=== PATIENT | male | born 1985 | race African-American/Black ===

== ENCOUNTER → 2021-07-24 16:34 | Outpatient (CLI) | payer MEDICAID, SELFPAY ==
[2021-07-24 16:52] LABS: Basophils # 0.1 K/mm3 (0-0.2); Basophils % 0.7 % (0.1-2.0); Eosinophils # 0.1 K/mm3 (0.0-0.4); Hematocrit 48.4 % (42.0-52.0); Lymphocytes # 2.4 K/mm3 (0.7-4.5); Lymphocytes % 26.3 % (10-50); Mean Corpuscular Hemoglobin 28.7 pg (27.0-31.2); Mean Corpuscular Volume 92.7 fl (80-94); Monocytes # 0.5 K/mm3 (0.1-1.0); Neutrophils # 6.1 K/mm3 (1.8-7.8); Platelet Count 240 K/mm3 (142-424); Red Blood Count 5.22 M/mm3 (4.60-6.20); Red Cell Distribution Width 13.3 % (11.5-17.5); White Blood Count 9.1 K/mm3 (4.8-10.8)
[2021-07-24 16:56] LABS: Alanine Aminotransferase 49 U/L (12-78); Albumin Level 4.3 g/dl (3.5-5.0); Albumin/Globulin Ratio 1.2 (1.1-1.8); Alkaline Phosphatase 79 U/L (38-126); Anion Gap 17.9 mEq/L (5-15); Aspartate Amino Transferase 38 U/L (17-59); Bilirubin,Total 0.3 mg/dl (0.2-1.3); Blood Urea Nitrogen 14 mg/dl (9-20); Calcium 9.7 mg/dl (8.4-10.2); Carbon Dioxide 26 mmol/L (22.0-30.0); Chloride 105 mmol/L (98-107); Chol/HDL Ratio 6.8 (1-3.5); Cholesterol 217 mg/dl (140-200); Estimated Glomerular Filt Rate 129 ml/min (>60); GFR (African American) 156 ML/MIN (>60); Globulin 3.5 g/dL (1.3-3.2); Glucose 106 mg/dl (74-100); HDL Cholesterol 32 mg/dl (40-60); Potassium 4.9 mmoL/L (3.5-5.1); Sodium 144 mmol/L (136-145); Total Protein,Serum 7.8 g/dl (6.3-8.2); Triglycerides 258 mg/dl (30-150); VLDL Cholesterol 52 mg/dL (0-40)
[2021-07-24 17:07] LABS: Direct LDL Cholesterol 145.69 mg/dL (100-129)
[2021-07-24 17:13] LABS: Free T4 (Free Thyroxine) 0.91 ng/dl (0.78-2.19)
[2021-07-24 17:14] LABS: 25-OH Vitamin D, Total 22.9 ng/mL (30-100)
[2021-07-24 17:27] LABS: Thyroid Stimulating Hormone 0.74 uIU/mL (0.465-4.68)
== END ==
PROVIDERS: Visit Provider Physician Assistant
DX: Z00.00 Encounter for general adult medical examination without abnormal findings (principal); E55.9 Vitamin D deficiency, unspecified
CPT/HCPCS: 80053; 80061; 82306; 84439; 84443; 85025

== ENCOUNTER → 2022-07-13 16:10 | Outpatient (CLI) | payer MEDICAID, SELFPAY ==
--- NOTE | 2022-07-13 16:15 | XR_ITS ---
FINAL REPORT CLINICAL HISTORY: right ankle injury FINDINGS: RIGHT ANKLE: Three views of the right ankle were obtained. There is an oblique fracture of the distal fibular metaphysis with mild overlapping of the fracture fragments. The joint spaces and mortise are intact. There is mild soft tissue swelling. IMPRESSION: Oblique fracture of the distal fibular metaphysis with mild overlapping of the fracture fragments. Mild soft tissue swelling. Reviewed, Interpreted and Dictated by Huber Ibrahim III, MD Transcribed by Kaylene Navarro Authenticated and [facility]
== END ==
PROVIDERS: PCP Emergency Medicine; Visit Provider Emergency Medicine
DX: S99.911A Unspecified injury of right ankle, initial encounter (principal); M25.571 Pain in right ankle and joints of right foot
CPT/HCPCS: 73610

== ENCOUNTER → 2022-07-22 12:19 | Outpatient (CLI) | payer MEDICAID, SELFPAY ==
--- NOTE | 2022-07-22 12:23 | XR_ITS ---
FINAL REPORT CLINICAL HISTORY: fracture evaluation COMPARISON: 07/13/2022 FINDINGS: Right ankle Three views were obtained. There is a healing oblique fracture of the distal fibula with mild callus formation. There is mild subcutaneous edema about the ankle. The mortise is intact. IMPRESSION: Healing fracture of the distal fibula. Reviewed, Interpreted and Dictated by Rudy Artis MD Transcribed by Maryam Stahl Authenticated and . [facility]
== END ==
PROVIDERS: PCP Emergency Medicine; Visit Provider Podiatrist
DX: M25.571 Pain in right ankle and joints of right foot (principal); T14.8XXA Other injury of unspecified body region, initial encounter
CPT/HCPCS: 73610

== ENCOUNTER → 2022-08-04 12:48 | Outpatient (CLI) | payer MEDICAID, SELFPAY ==
--- NOTE | 2022-08-04 12:52 | XR_ITS ---
FINAL REPORT CLINICAL HISTORY: ankle pain COMPARISON: July 22, 2022 FINDINGS: RIGHT ANKLE Three views of the right ankle were obtained. An oblique nondisplaced fracture of the distal fibular metaphysis is again noted. There is some callus formation noted at the fracture site. The joint spaces and mortise are intact. The soft tissue swelling is improved. IMPRESSION: Healing fracture of the distal fibular metaphysis with improved soft tissue swelling. Reviewed, Interpreted and Dictated by Huber Ibrahim III, MD Transcribed by Tierney Bhatia Authenticated and . [facility]
== END ==
PROVIDERS: PCP Emergency Medicine; Visit Provider Podiatrist
DX: S82.891A Other fracture of right lower leg, initial encounter for closed fracture (principal); S99.911A Unspecified injury of right ankle, initial encounter
CPT/HCPCS: 73610

== ENCOUNTER → 2022-08-25 13:45 | Outpatient (CLI) | payer MEDICAID, SELFPAY ==
--- NOTE | 2022-08-25 13:48 | XR_ITS ---
FINAL REPORT CLINICAL HISTORY: check healing, pain COMPARISON: August 04, 2022 FINDINGS: RIGHT ANKLE Three views of the right ankle were obtained. There is an oblique fracture of the lateral malleolus with bony resorption at the fracture site making the fracture more evident since the prior exam. Displacement is similar from the prior exam. The joint spaces and mortise are intact. There is no soft tissue abnormality. IMPRESSION: Distal fibular fracture, better seen from prior exam probably reflecting bony resorption. Reviewed, Interpreted and Dictated by Rd Joseph MD Transcribed by Tierney Bhatia Authenticated and [facility]
== END ==
PROVIDERS: PCP Emergency Medicine; Visit Provider Podiatrist
DX: M25.571 Pain in right ankle and joints of right foot (principal); M25.471 Effusion, right ankle; S82.831D Other fracture of upper and lower end of right fibula, subsequent encounter for closed fracture with routine healing
CPT/HCPCS: 73610

== ENCOUNTER → 2022-09-03 14:47 | Outpatient (CLI) | payer MEDICAID, SELFPAY ==
--- NOTE | 2022-09-03 14:48 | CT_ITS ---
FINAL REPORT TECHNIQUE: Thin section axial CT images with coronal and sagittal reformats were performed. This study was performed with techniques to keep radiation doses as low as reasonably achievable (ALARA). Individualized dose reduction techniques using automated exposure control or adjustment of mA and/or kV according to the patient''s size were employed. CLINICAL HISTORY: pain, swelling, healing COMPARISON: Radiographs dated August 25, 2022. FINDINGS: CT RIGHT ANKLE WITHOUT CONTRAST There is a subacute oblique fracture of the distal fibular metaphysis with up to 4 mm of distraction. There is callus formation along its posterior border with no other significant callus formation identified. No other fracture is identified. There is lateral soft tissue edema. There are no masses or fluid collections. IMPRESSION: Subacute oblique fracture of the distal fibular metaphysis with callus formation along its posterior border. Reviewed, Interpreted and Dictated by Huber Ibrahim III, MD Transcribed by Tierney Bhatia Authenticated and [facility]
== END ==
PROVIDERS: PCP Emergency Medicine; Visit Provider Podiatrist
DX: S82.831A Other fracture of upper and lower end of right fibula, initial encounter for closed fracture (principal)
CPT/HCPCS: 73700

== ENCOUNTER → 2022-10-05 13:58 | Outpatient (CLI) | payer MEDICAID, SELFPAY ==
--- NOTE | 2022-10-05 14:03 | XR_ITS ---
FINAL REPORT CLINICAL HISTORY: ankle fracture f/u COMPARISON: 08/25/2022 FINDINGS: RIGHT ANKLE Three views of the right ankle were obtained. There is an oblique mildly displaced fracture of the distal fibula. The mortise is intact. There is soft tissue swelling about the ankle. IMPRESSION: Oblique mildly displaced fracture of the distal fibula. Reviewed, Interpreted and Dictated by Rudy Artis MD Transcribed by Tierney Bhatia Authenticated and [facility]
== END ==
PROVIDERS: PCP Emergency Medicine; Visit Provider Podiatrist
DX: S82.891K Other fracture of right lower leg, subsequent encounter for closed fracture with nonunion (principal); M25.571 Pain in right ankle and joints of right foot
CPT/HCPCS: 73610

== ENCOUNTER → 2022-11-12 09:16 | Outpatient (CLI) | payer MEDICAID, SELFPAY ==
--- NOTE | 2022-11-12 09:26 | XR_ITS ---
FINAL REPORT CLINICAL HISTORY: fracture followup COMPARISON: October 05, 2022 FINDINGS: RIGHT ANKLE Three views of the right ankle were obtained. There is a nondisplaced fracture of the distal fibular metaphysis. Bony alignment is stable. No new bony abnormality is identified. The joint spaces and mortise are intact. There is no soft tissue abnormality. IMPRESSION: Nondisplaced fracture of the distal fibular metaphysis. No new bony abnormality identified. Reviewed, Interpreted and Dictated by Huber Ibrahim III, MD Transcribed by Tierney Bhaita Authenticated and [facility]
== END ==
PROVIDERS: PCP Emergency Medicine; Visit Provider Podiatrist
DX: M25.571 Pain in right ankle and joints of right foot (principal); S82.831A Other fracture of upper and lower end of right fibula, initial encounter for closed fracture
CPT/HCPCS: 73610

== ENCOUNTER → 2023-01-14 09:40 | Outpatient (CLI) | payer MEDICAID, SELFPAY ==
--- NOTE | 2023-01-14 09:45 | XR_ITS ---
FINAL REPORT CLINICAL HISTORY: Right ankle pain COMPARISON: 11/12/2022 FINDINGS: AP, oblique, and lateral views of the right ankle were obtained. There has been interval healing of the previous distal fibular fracture. No new osseous abnormalities. The ankle mortise is intact. Soft tissues are normal. IMPRESSION: Interval healing distal fibular fracture. No new osseous abnormalities. Reviewed, Interpreted and Dictated by Angie Braun MD Transcribed by Beatrice Weinstein Authenticated and [facility]
== END ==
PROVIDERS: PCP Emergency Medicine; Visit Provider Podiatrist
DX: M25.571 Pain in right ankle and joints of right foot (principal)
CPT/HCPCS: 73610

== ENCOUNTER 2023-02-03 10:26 | Outpatient (RCR) | payer MEDICAID, SELFPAY ==
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
== END 2023-02-03 10:30 | disposition home or self-care (01) ==
LOC: PT 10:26
PROVIDERS: PCP Emergency Medicine; Visit Provider Podiatrist
DX: M25.371 Other instability, right ankle (principal)
CPT/HCPCS: 97110; 97163; 97530

== ENCOUNTER 2023-02-24 23:49 | Emergency (ER) | payer OTHER, MEDICAID, SELFPAY ==
[2023-02-25 00:15] VITALS: BP 189/118; PULSE 113; RESP 19; TEMP 36.7; O2SAT 100; BMI 31.1
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
[2023-02-25 00:43] LABS: Basophils # 0.1 K/mm3 (0-0.2); Basophils % 0.8 % (0.1-2.0); Eosinophils # 0.1 K/mm3 (0.0-0.4); Eosinophils % 1.5 % (0.1-12.0); Hematocrit 43.8 % (42.0-52.0); Hemoglobin 13.7 g/dL (14.1-18.0); Lymphocytes # 3.1 K/mm3 (0.7-4.5); Lymphocytes % 31.5 % (10-50); Mean Corpuscular HGB Conc 31.2 g/dL (31.8-35.4); Mean Corpuscular Hemoglobin 27.2 pg (27.0-31.2); Mean Corpuscular Volume 87.2 fl (80-94); Mean Platelet Volume 8.8 fl (7.4-10.4); Monocytes # 0.5 K/mm3 (0.1-1.0); Monocytes % 4.8 % (1.7-9.3); Neutrophils % 61.4 % (37.0-80.0); Platelet Count 263 K/mm3 (142-424); Red Blood Count 5.02 M/mm3 (4.60-6.20); Red Cell Distribution Width 13.6 % (11.5-17.5); White Blood Count 9.7 K/mm3 (4.8-10.8)
[2023-02-25 00:45] LABS: Chloride 108 mmol/L (98-107); Potassium 3.8 mmoL/L (3.5-5.1); Sodium 142 mmol/L (136-145)
[2023-02-25 00:48] LABS: Alanine Aminotransferase 43 U/L (12-78); Alkaline Phosphatase 79 U/L (38-126); Anion Gap 10.8 mEq/L (5-15); Aspartate Amino Transferase 43 U/L (17-59); Bilirubin,Total 0.3 mg/dl (0.2-1.3); Blood Urea Nitrogen 12 mg/dl (9-20); Calcium 9.1 mg/dl (8.4-10.2); Carbon Dioxide 27 mmol/L (22.0-30.0); Creatinine Clearance Estimated 190 mL/min (50-200); Estimated Glomerular Filt Rate 110 ml/min (>60); GFR (African American) 133 ML/MIN (>60); Glucose 78 mg/dl (74-100)
[2023-02-25 00:49] LABS: Albumin/Globulin Ratio 1.4 (1.1-1.8); Globulin 3.5 g/dL (1.3-3.2); Total Protein,Serum 8.5 g/dl (6.3-8.2)
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
[2023-02-25 03:15] VITALS: BP 147/81; PULSE 91; RESP 17; TEMP 36.7; O2SAT 99
== END 2023-02-25 03:27 | disposition home or self-care (01) ==
PROVIDERS: Emergency Provider Emergency Medicine; PCP Emergency Medicine
DX: S16.1XXA Strain of muscle, fascia and tendon at neck level, initial encounter (principal); S39.012A Strain of muscle, fascia and tendon of lower back, initial encounter; S93.401A Sprain of unspecified ligament of right ankle, initial encounter; V49.40XA Driver injured in collision with unspecified motor vehicles in traffic accident, initial encounter
CPT/HCPCS: 70450; 71045; 72128; 72170; 72192; 73610; 80053; 85025; 96374; 99284; 99285

== ENCOUNTER → 2023-02-25 11:30 | Outpatient (CLI) | payer MEDICAID, SELFPAY ==
[2023-02-25 16:25] LABS: Basophils # 0.1 K/mm3 (0-0.2); Basophils % 0.7 % (0.1-2.0); Eosinophils # 0.1 K/mm3 (0.0-0.4); Eosinophils % 1.2 % (0.1-12.0); Hematocrit 42.3 % (42.0-52.0); Lymphocytes # 2.3 K/mm3 (0.7-4.5); Lymphocytes % 25.8 % (10-50); Mean Corpuscular HGB Conc 30.8 g/dL (31.8-35.4); Mean Corpuscular Hemoglobin 27.5 pg (27.0-31.2); Mean Corpuscular Volume 89.2 fl (80-94); Mean Platelet Volume 11.2 fl (7.4-10.4); Monocytes # 0.4 K/mm3 (0.1-1.0); Neutrophils % 67.4 % (37.0-80.0); Platelet Count 263 K/mm3 (142-424); Red Blood Count 4.74 M/mm3 (4.60-6.20); Red Cell Distribution Width 13.6 % (11.5-17.5); White Blood Count 8.9 K/mm3 (4.8-10.8)
[2023-02-25 16:47] LABS: Hemoglobin A1C 5.4 % (4.0-6.0)
[2023-02-25 16:52] LABS: Alanine Aminotransferase 41 U/L (12-78); Albumin Level 4.8 g/dl (3.5-5.0); Albumin/Globulin Ratio 1.7 (1.1-1.8); Alkaline Phosphatase 79 U/L (38-126); Anion Gap 13.2 mEq/L (5-15); Aspartate Amino Transferase 37 U/L (17-59); Bilirubin,Total 0.5 mg/dl (0.2-1.3); Blood Urea Nitrogen 13 mg/dl (9-20); Calcium 9.2 mg/dl (8.4-10.2); Carbon Dioxide 26 mmol/L (22.0-30.0); Chloride 105 mmol/L (98-107); Chol/HDL Ratio 6.6 (1-3.5); Cholesterol 219 mg/dl (140-200); Estimated Glomerular Filt Rate 128 ml/min (>60); GFR (African American) 155 ML/MIN (>60); Globulin 2.8 g/dL (1.3-3.2); Glucose 121 mg/dl (74-100); HDL Cholesterol 33 mg/dl (40-60); Potassium 4.2 mmoL/L (3.5-5.1); Sodium 140 mmol/L (136-145); Total Protein,Serum 7.6 g/dl (6.3-8.2); Triglycerides 130 mg/dl (30-150); VLDL Cholesterol 26 mg/dL (0-40)
[2023-02-25 17:03] LABS: Direct LDL Cholesterol 157.29 mg/dL (100-129)
[2023-02-25 17:23] LABS: Thyroid Stimulating Hormone 0.98 uIU/mL (0.465-4.68)
[2023-02-25 17:33] LABS: 25-OH Vitamin D, Total 18.8 ng/mL (30-100)
== END ==
PROVIDERS: PCP Family Medicine; Visit Provider Family Medicine
DX: E78.5 Hyperlipidemia, unspecified (principal); E55.9 Vitamin D deficiency, unspecified; Z79.899 Other long term (current) drug therapy
CPT/HCPCS: 80053; 80061; 82306; 83036; 84443; 85025

== ENCOUNTER 2023-02-26 20:52 | Emergency (ER) | payer OTHER, MEDICAID, SELFPAY ==
[2023-02-26 20:55] VITALS: BP 160/95; PULSE 102; RESP 14; TEMP 37.6; O2SAT 98; BMI 31.8
[2023-02-26 21:09] VITALS: PULSE 105; O2SAT 97
[2023-02-26 21:15] VITALS: PULSE 96; O2SAT 97
[2023-02-26 21:30] VITALS: PULSE 100; O2SAT 95
[2023-02-26 22:00] VITALS: PULSE 91; O2SAT 95
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
[2023-02-27 00:09] VITALS: BP 147/79; PULSE 87; RESP 16; TEMP 36.9; O2SAT 97
== END 2023-02-27 00:13 | disposition home or self-care (01) ==
PROVIDERS: Emergency Provider Emergency Medicine; PCP Emergency Medicine
DX: R51.9 Headache, unspecified (principal); M54.2 Cervicalgia; V49.40XA Driver injured in collision with unspecified motor vehicles in traffic accident, initial encounter
CPT/HCPCS: 96372; 99283; 99284

== ENCOUNTER 2023-06-30 14:09 | Outpatient (RCR) | payer MEDICAID, SELFPAY | END 2023-06-30 15:30 | disposition home or self-care (01) | LOC: PT 14:09 | PROVIDERS: Visit Provider Emergency Medicine | DX: S39.012A Strain of muscle, fascia and tendon of lower back, initial encounter (principal) | CPT/HCPCS: 97760 ==

== ENCOUNTER 2023-08-12 17:30 | Outpatient (RCR) | payer MEDICAID, SELFPAY ==
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
--- NOTE | 2023-06-15 17:15 | HMH.RHREAS ---
Rehab Reassessment Rehab OP Re-assessment Start: 05/18/23 17:41 Freq: Status: Active Protocol: Document 06/15/23 17:11 RAY (Rec: 06/15/23 17:14 RAY [id number]) E-signed By Ziyad Kirkpatrick, PT Rehab Re-assessment Subjective Subjective Patient reports 75% improvement since start of care. [ End ] Objective Objective Notes AROM: WFL MMT: WFL Pain: 3/10 current; 5/10 at worst over past 3 days Neuro: WNL Assessment Progress Assessment Progressing as Expected Assessment Notes Patient continues to present with LS/TS/CS pain with LS pain being the main concern. Patient has began to have significant decrease in symptoms since introduction of LS extension protocol coupled with dry needling. 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 PT suggests ESD would be beneficial for patient. Patient would benenfit from continuing with skilled PT services in order to address functional limitations with all standing, ambulatory, reaching and lifting activities. Patient goals met STG's Goals Not Met LTG's Revised Goals NA Plan Plan Continue with current POC. Frequency of Therapy 2x/week Duration of therapy 4 weeks Time and Billing Re-Eval Time 16 Re-Eval Billing Units 1 PHYSICIAN CERTIFICATION: I certify the specified therapy services for Michael Tinsley are required, authorized, and reviewed every 30 days.
--- NOTE | 2023-07-22 08:43 | HMH.RHREAS ---
Rehab Reassessment Rehab OP Re-assessment Start: 05/18/23 17:41 Freq: Status: Active Protocol: Document 07/22/23 08:31 RAY (Rec: 07/22/23 08:42 RAY [id number]) E-signed By Ziyad Kirkpatrick, PT Oswestry Index Section 1 Pain Intensity The pain comes and goes and is moderate Section 2 Personal Care (Washing,Dresing) change my way of washing or dressing in order to avoid pain Section 3 Lifting I can lift heavy weights, but it gives me extra pain Section 4 Walking I have some pain when walking but it does not increase with distance Section 5 Sitting Pain prevents me from sitting for more than one hour Section 6 Standing I have some pain on standing, but it does not increase with time Section 7 Sleeping Because of my pain, my normal night's sleep is less than 6 hours sleep Section 8 Social Life My social life is normal but increases the degree of pain Section 9 Traveling I get extra pain while traveling, but it does not compel me to seek al Section 10 Changing Degreee of Pain My pain fluctuates, but overall is definitely getting better Score and Risk Level Oswestry Sc 13 Oswestry Risk Level Mild Disability Rehab Re-assessment Subjective Subjective Patient reports 75% improvement since start of care. Objective Objective Notes AROM: WFL MMT: WFL Pain: 3/10 current; 5/10 at worst over past 3 days Neuro: WNL Assessment Progress Assessment Progressing as Expected Assessment Notes Patient continues to present with LS/TS/CS pain with LS pain being the main concern. Patient has began to have significant decrease in symptoms since introduction of LS extension protocol coupled with dry needling. Patient is requesting an external
== END 2023-08-12 17:35 | disposition home or self-care (01) ==
LOC: PT 17:30
PROVIDERS: Visit Provider Nurse Practitioner Family
DX: M54.2 Cervicalgia (principal); M54.6 Pain in thoracic spine; M54.50 Low back pain, unspecified; V89.2XXA Person injured in unspecified motor-vehicle accident, traffic, initial encounter
CPT/HCPCS: 20561; 97010; 97012; 97014; 97035; 97110; 97140; 97163; 97164; G0283

== ENCOUNTER → 2023-08-18 14:57 | Outpatient (POV) | payer OTHER, SELFPAY ==
[2023-08-18 15:17] VITALS: BP 145/88; PULSE 84; RESP 18; O2SAT 97; BMI 32.0
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
== END | disposition home or self-care (01) ==
PROVIDERS: PCP Emergency Medicine; Visit Provider Nurse Practitioner Family
DX: M54.50 Low back pain, unspecified (principal); G89.29 Other chronic pain; M51.34 Other intervertebral disc degeneration, thoracic region; M51.16 Intervertebral disc disorders with radiculopathy, lumbar region; M25.511 Pain in right shoulder; M54.9 Dorsalgia, unspecified; M79.18 Myalgia, other site; M54.2 Cervicalgia
CPT/HCPCS: 99202; G0463

== ENCOUNTER 2023-09-14 14:00 | Day surgery (SDC) | payer MEDICAID, SELFPAY ==
[2023-09-14 14:03] VITALS: BP 153/100; PULSE 95; RESP 20; TEMP 36.5; O2SAT 99; BMI 31.1
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
[2023-09-14 14:50] VITALS: BP 157/99; PULSE 80; RESP 20; O2SAT 95
--- NOTE | 2023-09-14 14:52 | XR_ITS ---
FINAL REPORT CLINICAL HISTORY: ankle pain FINDINGS: RIGHT ANKLE: Three weight bearing views of the right ankle were obtained. There is no acute fracture or dislocation. The joint spaces and mortise are intact. There is no soft tissue abnormality. IMPRESSION: No acute process. Reviewed, Interpreted and Dictated by Huber Ibrahim III, MD Transcribed by Navi Rivers Authenticated and [facility]
--- NOTE | 2023-09-14 14:52 | XR_ITS ---
FINAL REPORT CLINICAL HISTORY: contusion of bone FINDINGS: 3 weight bearing views of the right foot were obtained. There is no acute fracture or dislocation. The joint spaces are intact. The soft tissues are unremarkable. IMPRESSION: No acute process. Reviewed, Interpreted and Dictated by Huber Ibrahim III, MD Transcribed by Navi Rivers Authenticated and [facility]
[2023-09-14 15:46] VITALS: BP 150/97; PULSE 82; RESP 18; O2SAT 98
[2023-09-14 15:48] VITALS: BP 150/97; PULSE 82; RESP 18; O2SAT 98
== END 2023-09-14 14:50 | disposition home or self-care (01) ==
PROVIDERS: PCP Emergency Medicine; Visit Provider Nurse Anesthetist, Certified Registered
DX: M79.18 Myalgia, other site (principal)
CPT/HCPCS: 20552; 73610; 73630; J1040

== ENCOUNTER → 2023-09-28 08:17 | Outpatient (CLI) | payer MEDICAID, SELFPAY ==
[2023-09-28 21:32] LABS: Amphetamine/Metha Screen,Urine Negative ng/ml (<1000)
[2023-09-28 21:33] LABS: Benzodiazepines Screen,Urine Negative ng/ml (<200)
[2023-09-28 21:34] LABS: Cannabinoid Screen,Urine Negative ng/ml (<50); Cocaine Screen,Urine Negative ng/ml (<300)
[2023-09-28 21:35] LABS: Methadone Screen,Urine Negative ng/ml (<300)
[2023-09-28 21:36] LABS: Opiate Screen,Urine Negative ng/ml (<300)
[2023-09-28 21:39] LABS: Phencyclidine Screen,Urine Negative ng/ml (<25)
[2023-09-28 21:42] LABS: Barbiturates Screen,Urine Negative ng/ml (<200)
== END ==
PROVIDERS: PCP Emergency Medicine; Visit Provider Emergency Medicine
DX: Z79.899 Other long term (current) drug therapy (principal)
CPT/HCPCS: 80305

== ENCOUNTER → 2023-10-01 14:22 | Outpatient (POV) | payer MEDICAID, SELFPAY ==
[2023-10-01 14:29] VITALS: BP 161/105; PULSE 108; RESP 18; O2SAT 99; BMI 31.9
--- NOTE | 2023-10-01 14:45 | EXP.PAIN.SOA ---
[facility] Pain Management SOAP Note Subjective:: Patient is a pleasant 38-year-old male who presents today for follow-up of trigger point injections over his left thoracolumbar paraspinous muscle on 09/14/2023. We are currently treating the patient for myofascial pain, mid back pain, neck pain, degenerative disc disease of thoracic and lumbar spine , lumbar facet arthropathy right shoulder pain. Today he rates his pain a 5 out of 10. Patient denies any new trauma or injury since our last visit. He does state that he had approximately 25% improvement following his trigger point injections and that it did ease up some of the pain. He does state that he feels like his pain has now moved locations and is more into his low back along the left side. Patient does state that he notices the pain more prominently with certain movements such as bending, twisting or lifting. Patient denies any radiating symptoms down into his legs. Patient does describe the pain as an aching, throbbing sensation that is worse with increased activity. He does state the pain interferes with his ability perform activities of daily living such as cooking and cleaning. Patient does state since our last visit he has been prescribed gabapentin however he has not started this medication yet. Patient does state that he is in the process of getting scheduled for a lumbar MRI that was ordered by Dr. Aguiar's office. He does state that it has been a little while in the last he heard that radiology could not get him in just yet due to limited availability. His Caleb has been reviewed and is appropriate. Review of Systems: General: No recent weight changes, no fever, no sleep disturbances Respiratory: No cough, no shortness of air, no recurring pulmonary infections Cardiovascular/peripheral vascular: No chest pain, no palpitations, no edema, no shortness of breath Gastrointestinal: No new onset incontinence, normal bowel movements reported Genitourinary: No new onset incontinence Musculoskeletal: Low back pain Psychiatric: [Normal mood/affect] Neurological: [Denies weakness in extremities], [denies balance issues] Objective:: Physical Exam: General: Alert and oriented x3, no acute distress, pleasant and cooperative Lungs: Respirations even and unlabored, symmetrical chest expansion Eyes: PERRL Musculoskeletal: Flexion and extension of lumbar [spine] somewhat guarded secondary to pain, positive Kemps test Neurological: Speech clear, no gross sensory deficit Assessment:: Degenerative disc disease of thoracic and lumbar spine with lumbar facet arthropathy, myofascial pain, neck pain, mid back pain, shoulder pain Plan:: Patient continues to experience significant pain on a day-to-day basis. Today he did have limited range of motion of his lumbar spine along with a positive Kemps test. I have discussed with the patient that he may benefit from left lumbar medial branch blocks. Risk and benefits were discussed with patient and would like to proceed forward with this plan of care. Patient will be scheduled for a diagnostic left lumbar medial branch block #1 L1-L2 and L2-L3. I have recommended that the patient contact Dr. Aguiar's office to find out the status of his lumbar MRI. I have also discussed with the patient that if he needs additional orders for this imaging and cannot get it through his PCP he is more than welcome to call us back to help with this. Patient has been instructed to contact the clinic with any concerns before the next appointment. Dr. Gil has reviewed this note and agrees with this plan of care. This note was dictated using voice recognition software and make contain errors or omissions. [facility] Disclaimer: The information contained in this section may have been updated after the patient was seen, as this information can be updated by other users. Family History Mother Hypertension Father Hypertension Social Histo
== END ==
PROVIDERS: PCP Emergency Medicine; Visit Provider Nurse Practitioner Family
DX: M51.34 Other intervertebral disc degeneration, thoracic region (principal); M51.36 Other intervertebral disc degeneration, lumbar region; M47.26 Other spondylosis with radiculopathy, lumbar region; M79.10 Myalgia, unspecified site; M54.2 Cervicalgia; M25.511 Pain in right shoulder
CPT/HCPCS: 99212; G0463

== ENCOUNTER → 2023-10-12 07:45 | Outpatient (CLI) | payer MEDICAID, SELFPAY ==
--- NOTE | 2023-10-12 07:47 | MR_ITS ---
FINAL REPORT CLINICAL HISTORY: MID BACK PAIN FINDINGS: Multiplanar MR imaging of the thoracic spine was performed without contrast. There is mild decreased disc signal in the mid thoracic disc level of which is uncertain. The vertebrae are normal height. There is no malalignment. The thoracic spinal cord has an unremarkable appearance without evidence of mass, edema or syrinx. There is no evidence of canal stenosis or cord compression. On the axial images, no focal disc protrusion is identified. There is no evidence of significant canal stenosis. No paraspinous soft tissue abnormality is seen. IMPRESSION: No evidence of acute bony abnormality, disc protrusion or canal stenosis. Reviewed, Interpreted and Dictated by Rudy Artis MD Transcribed by Navi Rivers Authenticated and [facility]
== END ==
PROVIDERS: PCP Emergency Medicine; Visit Provider Nurse Practitioner Family
DX: M54.6 Pain in thoracic spine (principal)
CPT/HCPCS: 72146

== ENCOUNTER → 2023-10-19 16:02 | Outpatient (CLI) | payer MEDICAID, SELFPAY ==
[2023-10-19 16:08] LABS: Microscopic, Urine URINE MICROSCOPIC (MICROSCOPIC)
[2023-10-19 18:05] LABS: Chol/HDL Ratio 6.1 (1-3.5); Cholesterol 242 mg/dl (140-200); HDL Cholesterol 40 mg/dl (40-60); Triglycerides 134 mg/dl (30-150); VLDL Cholesterol 27 mg/dL (0-40)
[2023-10-19 18:17] LABS: Direct LDL Cholesterol 163.71 mg/dL (100-129)
[2023-10-19 18:43] LABS: Appearance,Urine CLEAR (Clear); Bilirubin,Urine Negative (Negative); Blood, Urine Negative (Negative); Color,Urine YELLOW (Yellow); Glucose,Urine (UA) Negative (Negative); Ketones,Urine Negative (Negative); Leukocyte Esterase,Urine Negative (Negative); Nitrate,Urine Negative (Negative); PH,Urine 5.5 (5.0-8.5); Protein,Urine Negative (Negative); Specific Gravity, Urine >= 1.030 (1.005-1.030); Urobilinogen,Urine 0.2 EU/dl (0.2)
[2023-10-19 20:08] LABS: Mucus,Urine 4+ /lpf; Squamous Epithelial Cell,Urine Occasional #/hpf (0-5); WBC,Urine Occasional #/hpf (0-3)
== END ==
PROVIDERS: PCP Emergency Medicine; Visit Provider Emergency Medicine
DX: E78.5 Hyperlipidemia, unspecified (principal); N39.0 Urinary tract infection, site not specified
CPT/HCPCS: 36415; 80061; 81001

== ENCOUNTER 2023-11-09 14:15 | Day surgery (SDC) | payer MEDICAID, SELFPAY ==
[2023-11-09 14:24] VITALS: BP 151/97; PULSE 101; RESP 16; TEMP 36.7; O2SAT 99; BMI 32.0
[2023-11-09 14:25] VITALS: BP 156/90; PULSE 84; O2SAT 98
[2023-11-09 14:29] VITALS: BP 156/90; PULSE 89; O2SAT 100
[2023-11-09 14:30] VITALS: BP 151/97; PULSE 83; RESP 16; O2SAT 99
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
== END 2023-11-09 14:30 | disposition home or self-care (01) ==
LOC: SC.PAINP 14:15
PROVIDERS: PCP Emergency Medicine; Visit Provider Nurse Anesthetist, Certified Registered
DX: M47.896 Other spondylosis, lumbar region (principal); M51.36 Other intervertebral disc degeneration, lumbar region
CPT/HCPCS: 64493; 64494; J1030

== ENCOUNTER 2023-12-02 16:03 | Outpatient (CLI) | payer MEDICAID, SELFPAY ==
[2023-12-02 18:31] LABS: Amphetamine/Metha Screen,Urine Negative ng/ml (<1000); Barbiturates Screen,Urine Negative ng/ml (<200); Benzodiazepines Screen,Urine Negative ng/ml (<200); Cannabinoid Screen,Urine Negative ng/ml (<50); Cocaine Screen,Urine Negative ng/ml (<300); Methadone Screen,Urine Negative ng/ml (<300); Opiate Screen,Urine Negative ng/ml (<300)
[2023-12-02 18:44] LABS: Phencyclidine Screen,Urine Negative ng/ml (<25)
== END 2023-12-02 23:59 ==
LOC: LAB.DROPOF 12-03 11:05
PROVIDERS: PCP Family Medicine; Visit Provider Family Medicine
DX: Z79.899 Other long term (current) drug therapy (principal)
CPT/HCPCS: 80307

== ENCOUNTER 2024-01-12 21:54 | Outpatient (CLI) | payer MEDICAID, SELFPAY ==
[2024-01-12 19:57] LABS: Basophils % 0.2 % (0.1-2.0); Eosinophils # 0.1 K/mm3 (0.0-0.4); Eosinophils % 0.9 % (0.1-12.0); Hematocrit 45.2 % (42.0-52.0); Lymphocytes # 2.3 K/mm3 (0.7-4.5); Lymphocytes % 26.9 % (10-50); Mean Corpuscular HGB Conc 33.2 g/dL (31.8-35.4); Mean Corpuscular Hemoglobin 28.7 pg (27.0-31.2); Mean Corpuscular Volume 86.5 fl (80-94); Mean Platelet Volume 10.5 fl (7.4-10.4); Monocytes # 0.4 K/mm3 (0.1-1.0); Monocytes % 4.3 % (1.7-9.3); Neutrophils # 5.9 K/mm3 (1.8-7.8); Neutrophils % 67.6 % (37.0-80.0); Platelet Count 257 K/mm3 (142-424); Red Blood Count 5.22 M/mm3 (4.60-6.20); Red Cell Distribution Width 13.6 % (11.5-17.5); White Blood Count 8.7 K/mm3 (4.8-10.8)
[2024-01-12 20:53] LABS: Alanine Aminotransferase 52 U/L (12-78); Albumin Level 4.6 g/dl (3.5-5.0); Albumin/Globulin Ratio 1.4 (1.1-1.8); Alkaline Phosphatase 85 U/L (38-126); Anion Gap 13.4 mEq/L (5-15); Aspartate Amino Transferase 38 U/L (17-59); Bilirubin,Total 0.3 mg/dl (0.2-1.3); Blood Urea Nitrogen 11 mg/dl (9-20); Calcium 9.9 mg/dl (8.4-10.2); Carbon Dioxide 27 mmol/L (22.0-30.0); Chloride 105 mmol/L (98-107); Chol/HDL Ratio 7.7 (1-3.5); Cholesterol 246 mg/dl (140-200); Estimated Glomerular Filt Rate 128 ml/min (>60); GFR (African American) 154 ML/MIN (>60); Globulin 3.3 g/dL (1.3-3.2); Glucose 109 mg/dl (74-100); HDL Cholesterol 32 mg/dl (40-60); Potassium 4.4 mmoL/L (3.5-5.1); Sodium 141 mmol/L (136-145); Total Protein,Serum 7.9 g/dl (6.3-8.2); Triglycerides 364 mg/dl (30-150); VLDL Cholesterol 73 mg/dL (0-40)
[2024-01-12 21:05] LABS: Direct LDL Cholesterol 152.02 mg/dL (100-129)
[2024-01-12 21:11] LABS: 25-OH Vitamin D, Total 22.2 ng/mL (30-100)
[2024-01-12 21:24] LABS: Thyroid Stimulating Hormone 1.62 uIU/mL (0.465-4.68)
[2024-01-12 21:43] LABS: Vitamin B12 237 pg/mL (239-931)
[2024-01-12 22:09] LABS: Hemoglobin A1C 5.8 % (4.0-6.0)
== END 2024-01-12 23:59 ==
LOC: LAB.DROPOF 21:55
PROVIDERS: PCP Family Medicine; Visit Provider Family Medicine
DX: E55.9 Vitamin D deficiency, unspecified (principal); E78.5 Hyperlipidemia, unspecified; E53.8 Deficiency of other specified B group vitamins; E66.9 Obesity, unspecified; Z68.34 Body mass index [BMI] 34.0-34.9, adult; Z79.899 Other long term (current) drug therapy
CPT/HCPCS: 80053; 80061; 82306; 82607; 83036; 84443; 85025

== ENCOUNTER 2024-07-25 09:00 | Outpatient (RCR) | payer MEDICAID, SELFPAY ==
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
== END 2024-07-25 09:05 | disposition home or self-care (01) ==
LOC: PT 09:00
PROVIDERS: Visit Provider Internal Medicine
DX: M54.2 Cervicalgia (principal)
CPT/HCPCS: 97014; 97035; 97163; G0283

== ENCOUNTER 2024-08-21 18:53 | Emergency (ER) | payer MEDICAID, SELFPAY ==
[2024-08-21 19:32] VITALS: BP 155/102; PULSE 104; RESP 20; TEMP 37.3; O2SAT 100; BMI 31.4
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
[2024-08-21] MEDS: TET/DIPHTH/PERT-ADULT 0.5ML SYRINGE 0.5 ML IM (20:23)
[2024-08-21 20:26] VITALS: BP 155/102; PULSE 104; RESP 20; TEMP 37.3
== END 2024-08-21 20:27 | disposition home or self-care (01) ==
PROVIDERS: Emergency Provider Nurse Practitioner; PCP Internal Medicine
DX: Z23 Encounter for immunization (principal)
CPT/HCPCS: 90471; 90715; 99212; G0463

== ENCOUNTER 2024-12-05 10:50 | Outpatient (CLI) | payer MEDICAID, SELFPAY ==
[2024-12-05 18:06] LABS: Hemoglobin A1C 5.7 % (4.0-6.0)
[2024-12-05 18:25] LABS: Alanine Aminotransferase 46 U/L (12-78); Albumin/Globulin Ratio 1.7 (1.1-1.8); Alkaline Phosphatase 81 U/L (38-126); Anion Gap 14.1 mEq/L (5-15); Aspartate Amino Transferase 45 U/L (17-59); Bilirubin,Total 0.5 mg/dl (0.2-1.3); Blood Urea Nitrogen 12 mg/dl (9-20); Carbon Dioxide 25 mmol/L (22.0-30.0); Chloride 106 mmol/L (98-107); Chol/HDL Ratio 8.2 (1-3.5); Cholesterol 229 mg/dl (140-200); Estimated Glomerular Filt Rate 109 ml/min (>60); GFR (African American) 132 ML/MIN (>60); Globulin 2.9 g/dL (1.3-3.2); Glucose 99 mg/dl (74-100); HDL Cholesterol 28 mg/dl (40-60); Potassium 4.1 mmoL/L (3.5-5.1); Sodium 141 mmol/L (136-145); Total Protein,Serum 7.9 g/dl (6.3-8.2); Triglycerides 184 mg/dl (30-150); VLDL Cholesterol 37 mg/dL (0-40)
== END 2024-12-05 23:59 | disposition home or self-care (01) ==
LOC: LAB.DROPOF 12-07 08:26
PROVIDERS: PCP Family Medicine; Visit Provider Family Medicine
DX: Z13.1 Encounter for screening for diabetes mellitus (principal); I10 Essential (primary) hypertension; F17.210 Nicotine dependence, cigarettes, uncomplicated
CPT/HCPCS: 80053; 80061; 83036

== ENCOUNTER 2025-08-28 11:23 | Outpatient (CLI) | payer MEDICAID, SELFPAY ==
[2025-08-28 08:35] VITALS: BMI 32.4
[2025-08-28 12:02] LABS: Hematocrit 40.5 % (42.0-52.0); Hemoglobin 12.8 g/dL (14.1-18.0); Immature Granulocytes % 0.4 %; Mean Corpuscular HGB Conc 31.6 g/dL (31.8-35.4); Mean Corpuscular Hemoglobin 27.6 pg (27.0-31.2); Mean Corpuscular Volume 87.5 fl (80-94); Nucleated Red Blood Cells % 0 %; Platelet Count 213 K/mm3 (142-424); Red Blood Count 4.63 M/mm3 (4.60-6.20); Red Cell Distribution Width-SD 42.0 fL; White Blood Count 8.6 K/mm3 (4.8-10.8)
[2025-08-28 12:15] LABS: Anion Gap 14.4 mEq/L (5-15); Blood Urea Nitrogen 9 mg/dl (9-20); Calcium 9.3 mg/dl (8.4-10.2); Carbon Dioxide 27 mmol/L (22.0-30.0); Chloride 104 mmol/L (98-107); Creatinine Clearance Estimated 219 mL/min (50-200); Creatinine,Serum 0.70 mg/dl (0.66-1.25); Estimated Glomerular Filt Rate 126 ml/min (>60); GFR (African American) 153 ML/MIN (>60); Glucose 105 mg/dl (74-100); Potassium 4.4 mmoL/L (3.5-5.1); Sodium 141 mmol/L (136-145)
== END 2025-08-28 23:59 | disposition home or self-care (01) ==
LOC: PREOP 11:24
PROVIDERS: Nurse Anesthetist, Certified Registered; PCP Family Medicine; Visit Provider Surgery
DX: Z01.812 Encounter for preprocedural laboratory examination (principal)
CPT/HCPCS: 80048; 85025

== ENCOUNTER 2025-08-30 06:06 | Day surgery (SDC) | payer MEDICAID, SELFPAY ==
[2025-08-28 13:41] VITALS: BMI 32.4
[2025-08-30] VITALS (10 sets, daily range): BP systolic 130–159; BP diastolic 65–102; PULSE 70–99; RESP 16–24; TEMP 36.1–36.8; O2SAT 96–99
[2025-08-30] MEDS: 0.9 % SODIUM CHLORIDE 1000ML 1,000 ML 25 ML IV (06:20)
[2025-08-30] MEDS: CEFAZOLIN 2GM VIAL 2 GM (07:13)
[2025-08-30] MEDS: LIDOCAINE 1% 20ML MDV 20 ML (07:19)
[2025-08-30] MEDS: NEOSPORIN OINTMENT 0.9GM UDP 2 EACH TP (08:12)
--- NOTE | 2025-08-30 08:28 | EXP.OP.NOTE ---
Date of procedure: 08/30/25 Pre-op Diagnosis:: Bilateral lower back lipomas Post-op Diagnosis:: Bilateral lumbar hernias with incarcerated fat Procedure performed:: Primary repair of bilateral lumbar hernias (no mesh) Surgeon:: Rex Baez MD Anesthesia: local and LMA Estimated blood loss (mL): 25 Operative findings:: Bilateral lumbar defects with incarcerated fat Both defects noted to be relatively small Primary repair (no mesh) utilized secondary to size of defects Operative note:: After informed consent was obtained the patient was taken to the operating room and placed in the right lateral decubitus position. General anesthesia with laryngeal mask airway was achieved. His back was prepped and draped in a sterile fashion. After infiltration with local anesthetic a transverse incisions was made overlying the bilateral palpable lesions. Initial focus was on the left side. The deep subcutaneous tissue was dissected with a combination of electrocautery and blunt dissection. A fatty tumor was noted. As the fatty tissue was elevated it was notably attached via stalk . An obvious lumbar hernia was noted. The defect was relatively small. The incarcerated fat contents were transected with electrocautery. The defect was then closed primarily (no mesh) utilizing a combination of interrupted Vicryl and interrupted Ethibond. The right side was then approached. A similar defect with incarcerated fat contents was noted. The incarcerated contents were transected with electrocautery and the small defect was then closed primarily with interrupted Vicryl suture. Both wounds were irrigated. Skin was then closed with interrupted 4-0 nylon in a mattress fashion. Dressings were applied and the patient was transferred recovery in stable condition. Condition: stable Disposition: PACU Specimens:: Bilateral lumbar hernia incarcerated contents Complications:: No immediate
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
--- NOTE | 2025-08-30 08:43 | EXP.ANES.I ---
[facility] Anesthesia Record Part I Anesthesia Record I Intake, IV Amount: 1,400 Hydration: Adequate Estimated blood loss (mL): 25 Urine output (mL): 0 Blood Products used (#): none Blood Pressure: 138/101 SaO2: 96 Pulse Rate: 99 Airway Patency: Patent Respiratory Rate: 24 Temperature: 98.2 F Patient is:: Drowsy and Stable Stable to PACU at:: 08:35 Comments:: Surgical procedure changed to bilateral lumbar hernia repair.
--- NOTE | 2025-08-30 09:45 | SUR.PHASEII ---
clinic pharmacy stated they would work on pre auth for insurance for medication. pt and family notified.
--- NOTE | 2025-08-30 10:44 | SUR.PHASEII ---
updated pt and family on wait time. stated we are waiting on clinic pharmacy to bring meds. provided pt with chips and a drink
--- NOTE | 2025-08-30 10:50 | SUR.PHASEII ---
clinic pharmacy called stating they got the pre auth and will be up soon to bring pt his meds.
--- NOTE | 2025-08-30 10:53 | SUR.PHASEII ---
clinic pharmacy here giving meds to pt.
--- NOTE | 2025-08-30 11:09 | EXP.ANES.II ---
[facility] Anesthesia Record Part II Anesthesia Record Part II Discharge Time: 09:05 Destination: Surgical Day Care (OP Surgery) PACU nurse assessment reviewed?: Yes Patient Condition:: Good Anesthesia Complications:: None Swallowing reflex intact?: Yes Airway Patency: Patent Cyanosis?: No Blood Pressure: 137/88 SaO2: 99 Respiratory Rate: 16 Pulse Rate: 84 Temperature: 97.9 F Mental Status: Alert & Oriented Pain level:: 0 Nausea and/or vomitting:: None Intake, IV Amount: 0 Hydration: Adequate
== END 2025-08-30 10:56 | disposition home or self-care (01) ==
PROVIDERS: PCP Family Medicine; Visit Provider Surgery
PROC: (CPT 49540; principal; 2025-08-30 07:30)
DX: K45.0 Other specified abdominal hernia with obstruction, without gangrene (principal); Z88.8 Allergy status to other drugs, medicaments and biological substances
CPT/HCPCS: 49540; 96374; J0690; J1100; J2003; J2250; J2405; J2704; J3010; J7030; J7120

== ENCOUNTER 2025-11-12 08:26 | Outpatient (CLI) | payer MEDICAID, SELFPAY ==
--- OUTSIDE RECORDS SUMMARY | 2025-11-08 10:15 | XMS_ITS | Encounter Summary ---
[facility] Address [address] [place] [id number] Care Team Providers Care Government Guard Name Role Phone Rodrigo Barron MD Primary Care Provider [phone]- [phone] Reason for Visit * Reason Comments Hernia New patient . Lookin g for conformation on removal of hernia on left and right sides of back * Consultation (Routine) - Closed Specialty Diagnoses / Procedures Referred By Contac t Referred To Contact General Surgery Diagnoses Other specified abdominal hernia without obstruction or gangrene Procedures NC OFFICE/OUTPATIENT NEW MODERATE MDM 45 MINUTES Rodrigo Barron MD [address] [place] [address] Phone: tel: fax: [facility] [address] [place] [id number] Phone: tel: fax: Referral ID Status Reason Start Date Expiration Date V isits Requested Visits Authorized [id number] Closed Specialty Services Required 10/11/2025 01/10/2027 1 1 Encounter Details Date Type Department Care Team (Late st Contact Info) Description 11/08/2025 10:15 AM EST Office Visit [facility] [address] [place] [address] Wale Mcdonough MD [address] [place] [address] Lumbar hernia (Primary Dx) Social History Tobacco Use Types Packs/Day Years Used Date Smoking Tobacco: Some Days Cigarettes 0.3 6 Started: 2019 Passive Smoke Exposure: Past Smokeless Tobacco: Current Tobacco Cessation:Ready to Q uit: No; Counseling Given: Yes Alcohol Use Standard Drinks/Week Comments Yes 0 (1 standard drink = 0.6 oz pur e alcohol) some days Sex and Gender Information Value Date Recorded Sex Assigned at Not on file Legal Sex Male 2:19 PM EST Gender Identity Not on file Sexual Orientation Not on file documented as of this encounter Last Filed Vital Signs Vital Sign Reading Time Taken Comments Blood Pressure 147/96 11/08/2025 10:32 AM EST Pulse 85 11/08/2025 10:32 AM EST Temperature - - Respiratory Rate - - Oxygen Saturation 97% 11/08/2025 10:32 AM EST Inhaled Oxygen Concentration - - Weight 112 kg (247 lb 6.4 oz) 11/08/2025 10:32 A M EST Height 183 cm (6' 0.05 ) 11/08/2025 10:32 AM EST Body Mass Index 33.51 11/08/2025 10:32 AM EST documented in this encounter Progress Notes * Wale Mcdonough MD - 11/08/2025 10:15 AM ESTAssociated Problem(s): Lumbar hernia Currently 6 weeks post-hernia surgery. The sensation experienced is likely due to fluid accumulation and scarring at the repair site. A comprehensive CT scan of the abdomen, pelvis, and back was discussed as a potential diagnostic tool but was deemed unnecessary. The condition appears stable with no evidence of hernia recurrence. Advised to maintain current activity level without any restrictions.An old CT scan from 2022 revealed degenerative disc disease in the lumbar spine, which may account for ongoing back pain. This condition is likely contributing to the symptoms rather than a recurrence of the lumbar hernia. * Wale Mcdonough MD - 11/08/2025 10:15 AM EST General Surgery History and Physical Patient Name: Michael Tinsley Date of : 1985 Date of Service: 11/08/25 Referring Provider: Rodrigo Barron MD Chief Complaint Patient presents with Hernia New patient . Looking for conformation on removal of hernia on left and right sides of back Subjective History of Present Illness The patient is a 40-year-old male who presents for evaluation of a lumbar hernia. He underwent hernia surgery in late August 2025. Post-surgery, his family physician identified a knot that has since resolved. However, there is concern about the potential recurrence of the hernia.He reports persistent back pain and expresses reluctance towards further radiation exposure. History reviewed. No pertinent past medical history. History reviewed. No pertinent surgical history. Allergies Allergen Reactions Benzonatate Hives weird reaction last time he had this Current Outpatient Medications Medication Instructions gabapentin (NEURONTIN) 300 mg, Every Night at Bedtime GNP Vitamin D3 Extra Strength 25 MCG (1000 UT) tablet 1 tablet, Every 12 Hours Scheduled oxyCODONE-acetaminophen (PERCOCET) 7.5-325 MG per tablet take 1 tablet by mouth 3 times a day as needed for pain triamcinolone (KENALOG) 0.1 % cream Daily vitamin D (ERGOCALCIFEROL) 1.25 MG (21201 UT) capsule capsule 1 capsule, Weekly No family history on file. Social History Socioeconomic History Marital status: Single Tobacco Use Smoking status: Some Days Current packs/day: 0.25 Average packs/day: 0.3 packs/day for 5.9 years (1.5 ttl pk-yrs) Types: Cigarettes Start date: 2019 Passive exposure: Past Smokeless tobacco: Current Vaping Use Vaping status: Never Used Substance and Sexual Activity Alcohol use: Yes Comment: some days Drug use: Never Sexual activity: Yes Partners: Female Tobacco Use: High Risk (11/08/2025) Patient History Smoking Tobacco Use: Some Days Smokeless Tobacco Use: Current Passive Exposure: Past Objective Vital Signs: BP 147/96 (BP Location: Right arm, Patient Position: Sitting, Cuff Size: Large Adult) Pulse 85 Ht 183 cm (72.05 ) Wt 112 kg (247 lb 6.4 oz) SpO2 97% BMI 33.51 kg/m?? Body mass index is 33.51 kg/m??. Physical Exam: General: No acute distress well-developed and well-nourished Head: Normocephalic atraumatic Eyes: No scleral icterus Neck: Trachea midline Back: Bilateral lower lumbar transverse scars. No evidence of any hernia recurrence on physical exam. Areas are healing nicely Results Imaging - CT scan of the lumbar spine: 2022, Degenerative disc disease Labs No results found for: WBC , HGB , HCT , PLT No results found for: GLUCOSE , BUN , CREATININE , NA , K , CL , CALCIUM , PROTEINTOT , ALBUMIN , ALT , AST , ALKPHOS , BILITOT , GLOB , AGRATIO , BCR , ANIONGAP , EGFR Imaging There is no postop imaging Assessment & Plan Lumbar hernia Currently 6 weeks post-hernia surgery. The sensation experienced is likely due to fluid accumulation and scarring at the repair site. A comprehensive CT scan of the abdomen, pelvis, and back was discussed as a potential diagnostic tool but was deemed unnecessary. The condition appears stable with no evidence of hernia recurrence. Advised to maintain current activity level without any restrictions.An old CT scan from 2022 revealed degenerative disc disease in the lumbar spine, which may account for ongoing back pain. This condition is likely contributing to the symptoms rather than a recurrence of the lumbar hernia. Patient or patient policy services representative verbalized consent for the use of Ambient Listening during the visit with Wale Mcdonough MD for chart documentation. 11/08/2025 10:44 EST Wale Mcdonough MD 11/08/25 10:45 EST documented in this encounter Plan of Treatment Not on file documented as of this encounter Procedures Procedure Name Priority Date/Time Associated Diagnosis Comments SCANNED - IMAGING 11/08/2025 documented in this encounter Results * IMAGING SCANNED (11/08/2025) Anatomical Region Laterality Modality Radiographic Kate ging Wale Mcdonough MD IMG DIAGNOSTIC IMAGING O RDERABLES Final Result documented in this encounter Visit Diagnoses Diagnosis Lumbar hernia- Primary Hernia of other specified sites of abdominal cavity without mention of obstruction or gangrene documented in this encounter Care Teams Government Guard Relationship Specialty Start Date End Date Rodrigo Barron MD [address] [address] PCP - General Family Medicine 11/05/25 documented as of this encounter
[2025-11-12 15:37] LABS: Alanine Aminotransferase 49 U/L (12-78); Albumin Level 4.8 g/dl (3.5-5.0); Albumin/Globulin Ratio 1.4 (1.1-1.8); Alkaline Phosphatase 81 U/L (38-126); Anion Gap 13.7 mEq/L (5-15); Aspartate Amino Transferase 40 U/L (17-59); Bilirubin,Total 0.3 mg/dl (0.2-1.3); Blood Urea Nitrogen 12 mg/dl (9-20); Calcium 10.1 mg/dl (8.4-10.2); Carbon Dioxide 29 mmol/L (22.0-30.0); Chloride 102 mmol/L (98-107); Cholesterol 243 mg/dl (140-200); Creatinine,Serum 0.90 mg/dl (0.66-1.25); Estimated Glomerular Filt Rate 94 ml/min (>60); GFR (African American) 114 ML/MIN (>60); Globulin 3.5 g/dL (1.3-3.2); Glucose 88 mg/dl (74-100); HDL Cholesterol 27 mg/dl (40-60); Potassium 4.7 mmoL/L (3.5-5.1); Sodium 140 mmol/L (136-145); Total Protein,Serum 8.3 g/dl (6.3-8.2)
[2025-11-12 15:53] LABS: Free T4 (Free Thyroxine) 1.42 ng/dl (0.78-2.19)
[2025-11-12 15:56] LABS: Triglycerides 888 mg/dl (30-150)
[2025-11-12 16:07] LABS: Thyroid Stimulating Hormone 1.97 uIU/mL (0.465-4.68)
--- OUTSIDE RECORDS SUMMARY | 2025-11-14 08:30 | XMS_ITS | Clinical Summary ---
Author Organization [facility] Address [address] [place] [address] Care Team Providers Care Repossession Agent Name Role Phone Rodrigo Barron MD Primary Care Provider +1- [phone] Allergies Active Allergy Reactions Criticality Noted Date Comments Benzonatate Hives 08/30/2025 weird reaction last time he had this Medications oxyCODONE-aceta minophen (PERCOCET) 7.5-325 MG per tablet take 1 tablet by mouth 3 times a day as needed for pain Active GNP Vitamin D3 Extra Strength 25 MCG (1000 UT) tablet Take 1 tablet by mouth Every 12 (Twelve) Hours. 10/17/2025 Active vitamin D (ERGOCALCIFEROL ) 1.25 MG (01565 UT) capsule capsule Take 1 capsule by mouth 1 (One) Time Per Week. 10/17/2025 Active gabapentin (NEURONTIN) 300 MG capsule Take 1 capsule by mouth every night at bedtime. Active triamcinolone (KENALOG) 0.1 % cream Daily. 07/10/2025 Active Active Problems Problem Noted Date Diagnosed Date Lumbar hernia 11/08/2025 Assessment & Plan (11/08/2025 10:53 AM EST): Currently 6 weeks post-hernia surgery. The sensation [...] than a recurrence of the lumbar hernia. Encounters Date Type Department Care Team Description 11/08/2025 10:15 AM EST Office Visit [facility] [address] [place] [address] Wale Mcdonough MD Lumbar hernia (Primary Dx) 11/08/2025 Travel from Last 3 Months Social History Tobacco Use Types Packs/Day Years Used Date Smoking Tobacco: Some Days Cigarettes 0.3 6 Started: 2020 Passive Smoke Exposure: Past Smokeless Tobacco: Current Tobacco Cessation:Ready to Q uit: No; Counseling Given: Yes Alcohol Use Standard Drinks/Week Comments Yes 0 (1 standard drink = 0.6 oz pur e alcohol) some days Sex and Gender Information Value Date Recorded Sex Assigned at Not on file Legal Sex Male 2:19 PM EST Gender Identity Not on file Sexual Orientation Not on file Last Filed Vital Signs Vital Sign Reading [...] Mass Index 33.51 11/08/2025 10:32 AM EST Plan of Treatment Health Maintenance Due Date Last Done Comments Pneumococcal Vaccine 0-49 (1 of 2 - PCV) 2006 INFLUENZA VACCINE 06/29/2025 ANNUAL PHYSICAL 10/11/2025 HEPATITIS C SCREENING 10/11/2025 TDAP/TD VACCINES (3 - Td or Tdap) 08/21/2034 024, 09/10/2006 Procedures Procedure Name Priority Date/Time Associated Diagnosis Comments SCANNED - IMAGING 11/08/2025 from Last 3 Months Results * IMAGING SCANNED (11/08/2025) Anatomical Region Laterality Modality Radiographic Kate ging Wale Mcdonough MD IMG DIAGNOSTIC IMAGING O RDERABLES Final Result from Last 3 Months Insurance [employer] Care Teams Repossession Agent Relationship Specialty Start Date End Date Rodrigo Barron MD [facility] [place] [address] PCP - General Family Medicine 11/05/25
--- OUTSIDE RECORDS SUMMARY | 2025-11-14 08:30 | XMS_ITS | Encounter Summary ---
Author Organization [facility] Address [address] [place] [address] Care Team Providers Care Three Knife Trimmer Name Role Phone Rodrigo Barron MD Primary Care Provider +1- [phone] Encounter Details Date Type Department Care Team (Latest Contact Info) Description 11/08/2025 Travel Social History Tobacco Use Types Packs/Day Years Used Date Smoking Tobacco: Some Days Cigarettes 0.3 6 Started: 2019 Passive Smoke Exposure: Past Smokeless Tobacco: Current Alcohol Use Standard Drinks/Week Comments Yes 0 (1 standard drink = 0.6 oz pur e alcohol) some days Sex and Gender Information Value Date Recorded Sex Assigned at Not on file Legal Sex Male 2:19 PM EST Gender Identity Not on file Sexual Orientation Not on file documented as of this encounter Plan of Treatment Not on file documented as of this encounter Visit Diagnoses Not on filedocumented in this encounter Care Teams Three Knife Trimmer Relationship Specialty Start Date End Date Rodrigo Barron MD [address] [place] [address] PCP - General Family Medicine 11/05/25 documented as of this encounter
== END 2025-11-12 23:59 | disposition home or self-care (01) ==
LOC: LAB.DROPOF 11-14 08:27
PROVIDERS: PCP Family Medicine; Visit Provider Family Medicine
DX: E78.2 Mixed hyperlipidemia (principal); I10 Essential (primary) hypertension
CPT/HCPCS: 80053; 80061; 84439; 84443